=== PATIENT | female | born 1965 | race Caucasian/White ===

== ENCOUNTER 2019-11-02 18:08 | Emergency (ER) | payer OTHER ==
[~2019-11-02] VITALS: Ht 157.5 cm; Wt 61.7 kg
[2019-11-02 18:32] VITALS: BP_SYST 112
--- NOTE | 2019-11-02 18:37 | NUR ---
Patient triaged and placed in waiting room. VSS and patient appears in no acute distress at this time. Accompanied by , awaiting available bed, and MD notified of need for MSE.
--- NOTE | 2019-11-02 20:23 | NUR ---
Per government clerk, pt LWBS.
--- NOTE | 2019-11-02 20:23 | NUR ---
Patient left without being seen. No further treatment provided. ER MD aware
== END 2019-11-02 20:23 | disposition left against medical advice (07) ==
LOC: SED 18:08
DX: R05 Cough (principal); M25.512 Pain in left shoulder; M54.2 Cervicalgia; Z53.21 Procedure and treatment not carried out due to patient leaving prior to being seen by health care provider
CPT/HCPCS: 71045